=== PATIENT | male | born 1975 | race African-American/Black ===

== ENCOUNTER 2017-08-02 18:37 | Emergency (ER) | payer SELFPAY ==
[~2017-08-02 18:37] MED LIST: CEPH500C3 PO; IBUP800T23 PO
[2017-08-02 18:43] VITALS: BP 139/93; PULSE 60; RESP 14; TEMP 97.9; O2SAT 100
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
[2017-08-02] MEDS ORDERED: BACT800T5 PO (20:45)
== END 2017-08-02 21:14 | disposition home or self-care (01) ==
LOC: NEPK 18:37
DX: S90.811A Abrasion, right foot, initial encounter (principal); F17.200 Nicotine dependence, unspecified, uncomplicated; V03.90XA Pedestrian on foot injured in collision with car, pick-up truck or van, unspecified whether traffic or nontraffic accident, initial encounter
CPT/HCPCS: 73620; 99283